=== PATIENT | male | born 1995 | race Caucasian/White ===

== ENCOUNTER 2016-10-03 21:17 | Emergency (ER) | payer OTHER ==
[~2016-10-03] VITALS: Ht 170.2 cm; Wt 65.9 kg
[2016-10-03] MEDS ORDERED: MORPHINE 2 MG/ML 1ML SYRINGE IV PRN (22:45)
[2016-10-03] MEDS ORDERED: ONDANSETRON 4MG/2ML VIAL (J2405) IV ONE (22:45)
[2016-10-03] MEDS ORDERED: PANTOPRAZOLE 40MG INJ (PROTONIX) (C9113) IV ONE (22:45)
[2016-10-03 23:01] LABS: BASO # 0.1 K/mm3 (0.0-0.2); BASO % 0.9 % (0.0-1.0); EOS # 0.3 K/mm3 (0.0-0.50); EOS % 3.5 % (0.0-3.0); LARGE UNSTAINED CELL # 0.2 K/mm3 (0.0-0.4); LARGE UNSTAINED CELL % 2.2 % (0.0-4.0); LYMPH % 35.4 % (24.0-44.0); MEAN CORPUSCULAR HGB CONC 34.1 g/dl (32.0-36.5); MEAN CORPUSCULAR VOLUME 91.1 fl (80.0-96.0); MONO # 0.5 K/mm3 (0.0-0.8); MONO % 6.7 % (0.0-5.0); NEUTROPHILS % 51.3 % (36.0-66.0); PLATELET COUNT, AUTOMATED 251 k/mm3 (150-450); WHITE BLOOD COUNT 7.9 K/mm3 (4.0-10.0)
[2016-10-03 23:28] LABS: ALBUMIN 4.3 GM/DL (3.2-5.2); ALBUMIN/GLOBULIN RATIO 1.23 (1.00-1.93); ALKALINE PHOSPHATASE 81 U/L (45-117); ALT/SGPT 21 U/L (12-78); ANION GAP 8 MEQ/L (8-16); AST/SGOT 14 U/L (15-37); BILIRUBIN,DIRECT 0.2 MG/DL (0.0-0.2); BILIRUBIN,TOTAL 0.5 MG/DL (0.2-1.0); BLOOD UREA NITROGEN 10 MG/DL (7-18); CALCIUM LEVEL 9.3 MG/DL (8.5-10.1); CARBON DIOXIDE LEVEL 29 MEQ/L (21-32); CHLORIDE LEVEL 106 MEQ/L (98-107); CREATININE FOR GFR 1.07 MG/DL (0.70-1.30); GLOMERULAR FILTRATION RATE > 60.0 (>60); GLUCOSE, FASTING 86 MG/DL (70-105); POTASSIUM SERUM 4.5 MEQ/L (3.5-5.1); SODIUM LEVEL 143 MEQ/L (136-145); TOTAL PROTEIN 7.8 GM/DL (6.4-8.2)
[2016-10-03] MEDS ORDERED: PROT1TAB2 PO (23:47)
[2016-10-03 23:54] VITALS: BP 99/64
--- NOTE | 2016-10-04 07:35 | ECGEPIP ---
Stationary ECG Study [facility] - ED Test Date: 2016-10-03 Pat Name: SHEREE KATZ Department: Room: - Gender: M Equipment Sales Specialist: peterson : 1995 Requested By: SOULEYMANE SIEGEL Order Number: [id number] Reading MD: Bandar Ratliff Measurements Intervals [place] Rate: 43 P: 21 WA: 138 QRS: 51 QRSD: 109 T: 63 QT: 411 QTc: 350 Interpretive Statements SINUS BRADYCARDIA Electronically Signed On 10-04-2016 7:35:02 EDT by Bandar Ratliff
--- NOTE | 2016-10-04 08:21 | REP ---
Chest x-ray: Two views. History: Chest pain . Comparison study: No comparison . Findings: The lungs are well inflated and free of infiltrate. The pleural angles are sharp. The heart size is normal. Pulmonary vasculature is not increased. No significant bony abnormality is seen. Impression: Negative chest x-ray. Signed by Lino Rodrigues MD 10/04/2016 08:12 A
== END 2016-10-03 23:59 | disposition home or self-care (01) ==
LOC: M ED 21:17
DX: K29.70 Gastritis, unspecified, without bleeding (principal)
CPT/HCPCS: 71020; 80048; 80076; 82550; 82553; 83690; 85025; 85379; 93005; 96374; 96375; 99283; C9113; J2405

== ENCOUNTER 2017-06-08 14:46 | Emergency (ER) | payer OTHER ==
[2017-06-08] MEDS: GI COCKTAIL 50ML BTL(HYOSCYAMINE/MAALOX/LIDOCAINE VISCOUS)(1:3:1) PO (16:30)
[2017-06-08 16:46] LABS: BASO % 0.4 % (0.0-1.0); EOS # 0.1 10^3/uL (0.0-0.50); EOS % 2.1 % (0.0-3.0); HEMATOCRIT 42.4 % (42.0-52.0); HEMOGLOBIN 14.6 g/dl (13.5-17.5); IMMATURE GRANULOCYTE % 0.1 % (0-3.0); LYMPH # 2.4 10^3/uL (1.5-6.5); LYMPH % 35.8 % (24.0-44.0); MEAN CORPUSCULAR HEMOGLOBIN 30.4 pg (27.0-33.0); MEAN CORPUSCULAR HGB CONC 34.4 g/dl (32.0-36.5); MEAN CORPUSCULAR VOLUME 88.1 fl (80.0-96.0); MONO # 0.7 10^3/uL (0.0-0.8); MONO % 10.2 % (0.0-5.0); NEUTROPHILS # 3.5 10^3/uL (1.8-7.7); NEUTROPHILS % 51.4 % (36.0-66.0); PLATELET COUNT, AUTOMATED 258 10^3/uL (150-450); RED BLOOD COUNT 4.81 10^6/uL (4.30-6.10); RED CELL DISTRIBUTION WIDTH 11.9 % (11.5-14.5); WHITE BLOOD COUNT 6.7 10^3/uL (4.0-10.0)
[2017-06-08 17:18] LABS: ALBUMIN 4.4 GM/DL (3.2-5.2); ALBUMIN/GLOBULIN RATIO 1.33 (1.00-1.93); ALKALINE PHOSPHATASE 76 U/L (45-117); ALT/SGPT 30 U/L (12-78); ANION GAP 6 MEQ/L (8-16); AST/SGOT 38 U/L (7-37); BILIRUBIN,DIRECT 0.2 MG/DL (0.0-0.2); BILIRUBIN,TOTAL 0.8 MG/DL (0.2-1.0); BLOOD UREA NITROGEN 12 MG/DL (7-18); CALCIUM LEVEL 9.3 MG/DL (8.5-10.1); CARBON DIOXIDE LEVEL 29 MEQ/L (21-32); CHLORIDE LEVEL 107 MEQ/L (98-107); CK-MB VALUE MASS 2.6 NG/ML (<3.6); CPK CREATINE PHOSPHOKINASE 666 U/L (39-308); CREATININE FOR GFR 1.09 MG/DL (0.70-1.30); GLOMERULAR FILTRATION RATE > 60.0 (>60); GLUCOSE, FASTING 85 MG/DL (70-100); LIPASE 107 U/L (73-393); MB/CK RELATIVE INDEX 0.39 (< OR =4); POTASSIUM SERUM 4.9 MEQ/L (3.5-5.1); SODIUM LEVEL 142 MEQ/L (136-145); TOTAL PROTEIN 7.7 GM/DL (6.4-8.2); TROPONIN I < 0.02 NG/ML (< 0.10)
[2017-06-08 17:37] LABS: D-DIMER QUANT 315.1 ng/ml (<500)
== END 2017-06-08 18:08 | disposition home or self-care (01) ==
LOC: M ED 14:46
DX: R07.89 Other chest pain (principal); K21.9 Gastro-esophageal reflux disease without esophagitis
CPT/HCPCS: 71046

== ENCOUNTER 2018-02-04 21:46 | Emergency (ER) | payer OTHER ==
[~2018-02-04] VITALS: Ht 170.2 cm; Wt 65.5 kg
[~2018-02-04 21:46] MED LIST: PROT1TAB2 PO
[2018-02-04] MEDS ORDERED: diphenhydrAMINE 50 MG CAP PO ONE (22:45)
[2018-02-04] MEDS ORDERED: NAPROXEN 250 MG TAB PO ONE (22:45)
[2018-02-04] MEDS ORDERED: METOCLOPRAMIDE 10 MG TAB PO ONE (22:45)
[2018-02-04] MEDS ORDERED: MECLIZINE 25 MG TABLET PO ONE (22:45)
--- NOTE | 2018-02-04 23:21 | REPVR ---
EXAM: CT Head Without Contrast EXAM DATE/TIME: 02/04/2018 10:50 PM CLINICAL HISTORY: 22 years old, male; Injury or trauma; Fall; Initial encounter; Blunt trauma (contusions or hematomas); Consciousness not specified; Additional info: Dizzy, head trauma, SIMENTAL TECHNIQUE: Axial computed tomography images of the head/brain without contrast. All CT scans at this facility use at least one of these dose optimization techniques: automated exposure control; mA and/or kV adjustment per patient size (includes targeted exams where dose is matched to clinical indication); or iterative reconstruction. COMPARISON: No relevant prior studies available. FINDINGS: Brain: Normal. No hemorrhage. No significant white matter disease. No edema. Ventricles: Normal. No ventriculomegaly. Bones/joints: Normal. No acute fracture. Sinuses: Normal as visualized. No acute sinusitis. Mastoid air cells: Normal as visualized. No mastoid effusion. Soft tissues: Normal. IMPRESSION: Negative noncontrast head CT. Electronically signed by: Parveen Joe On 02/04/2018 23:20:50 PM
[2018-02-04] MEDS ORDERED: REGL10TA6 PO ×2 (23:29→23:40)
[2018-02-04 23:42] VITALS: BP 93/54
== END 2018-02-04 23:58 | disposition home or self-care (01) ==
LOC: M ED 21:46
DX: S06.0X0A Concussion without loss of consciousness, initial encounter (principal); W22.8XXA Striking against or struck by other objects, initial encounter; Y92.838 Other recreation area as the place of occurrence of the external cause; Y93.23 Activity, snow (alpine) (downhill) skiing, snowboarding, sledding, tobogganing and snow tubing; K21.9 Gastro-esophageal reflux disease without esophagitis; F17.210 Nicotine dependence, cigarettes, uncomplicated